=== PATIENT | female | born 1995 | race Asian ===

== ENCOUNTER 2018-08-26 10:08 | Day surgery (SDC) | payer OTHER ==
[~2018-08-26 10:08] MED LIST: Dexamethasone 20 MG/5 ML VIAL ONE; Lidocaine 1% PF 5 ML VIAL ONE; Ondansetron HCl/PF 4 MG/2 ML Vial ONE; PROPOFOL 200 MG/20 ML VIAL ONE; Succinylcholine Chloride 20 MG/ML 10 ml SYRINGE FS ONE
[2018-08-26] MEDS ORDERED: Scopolamine 1.5 mg/72 hour Patch ONE (10:52)
[2018-08-26] MEDS ORDERED: Ketorolac Tromethamine 30 MG/ML VIAL ONE (10:52)
--- NOTE | 2018-08-26 11:04 | HP ---
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 Histor y and exam suggestive of appendicitis. CAT scan revealing a dilated appendix without inflammatory ch anges. Appendix was retrocecal. Patient's white count 7 and hemoglobin 13. Basic metabolic profile is unremarkable. Urinalysis unremarkable. ALLERGIES: None. SOCIAL HISTORY: Tobacco none. Alcohol socially. MEDICATIONS: None. PAST MEDICAL HISTORY: Tonsillectomy. PHYSICAL EXAMINATION: VITAL SIGNS: 19 BMI, 130/82, 99.1 degrees, 70 heart rate, 18 respiratory rate. HEENT: Unremarkable. LUNGS: Clear to auscultation. CARDIAC: Regular rate and rhythm without murmur or gallop. ABDOMEN: Soft. Mild tenderness in right lower quadrant with guarding to deep palpation. EXTREMITIES: Unremarkable. ASSESSMENT AND PLAN: History and exam suggestive of appendicitis. CAT scan reveals dilated appendix without inflammatory changes. Recommend laparoscopic video appendectomy. Risk and benefits discuss ed. Questions answered.
[2018-08-26] MEDS ORDERED: Piperacillin/Tazobactam 3.375 GM in Sodium Chloride 0.9% 100 ML IVPB SCH (11:15)
[2018-08-26] MEDS ORDERED: Bupivacaine/Epinephrine 0.25% 30 ML VIAL ONE (12:12)
[2018-08-26] MEDS ORDERED: Fentanyl 100 MCG/2 ML VIAL ONE (12:40)
[2018-08-26] MEDS ORDERED: Promethazine HCl 25 MG/ML VIAL IM PRN (13:14)
[2018-08-26] MEDS ORDERED: Promethazine HCl 25 MG/ML VIAL SLOW IVP PRN (13:14)
[2018-08-26] MEDS ORDERED: Meperidine HCl/PF 25 MG/ML VIAL SLOW IVP PRN (13:14)
[2018-08-26] MEDS ORDERED: Ondansetron HCl/PF 4 MG/2 ML Vial IVP PRN (13:14)
[2018-08-26] MEDS ORDERED: SUGAMMADEX SODIUM 200 MG/2 ML VIAL ONE (13:43)
--- NOTE | 2018-08-26 14:09 | OP ---
DATE OF PROCEDURE: 08/26/2018 PREOPERATIVE DIAGNOSIS: Acute appendicitis. POSTOPERATIVE DIAGNOSIS: Acute appendicitis. PROCEDURE: Laparoscopic video appendectomy. SURGEON: Dr. Tr Cifuentes ANESTHESIA: General. Local 0.5% Marcaine with epinephrine 30 mL used. PROCEDURE: The patient was taken to the operating room where under general anesthesia, Florez cathete r placed at the beginning of the procedure and removed at the end. Abdomen clipped of hair, prepared with ChloraPrep, draped in routine fashion. Local anesthetic 0.5% Marcaine with epinephrine infiltr ated into skin and subcutaneous tissue about each port site. A infraumbilical incision made and pneu moperitoneum to 15 mmHg obtained with the Veress needle, replacing it with a 5 port, video laparoscop e inserted. Right subcostal incision made and a [address] Suprapubic incision made and a 12 por t placed. Appendix identified. Mesoappendix taken down with the LigaSure to the stump of the append ix divided with Endo-MELVIN blue load stapler. Appendix removed and submitted to Pathology. Stapled ce renny stump hemostasis gained with clips. Good hemostasis noted. Irrigant and pneumoperitoneum evacua josie. All instruments removed and suprapubic fascia approximated with 0 Vicryl and all skin incisions approximated with interrupted subdermal 4-0 Monocryl and DermaGlue applied. The patient tolerated t he procedure well without complications.
[2018-08-26] MEDS ORDERED: HYDROcodone/Acetaminophen 5/325 mg Tablet ONE (14:57)
== END 2018-08-26 15:45 | disposition home or self-care (01) ==
LOC: SDC 10:08
PROVIDERS: ATTEND Specialist
PROC: 0DTJ4ZZ Resection of Appendix, Percutaneous Endoscopic Approach (ICD-10-PCS; principal; 2018-08-26)
DX: K35.80 Unspecified acute appendicitis (principal)
CPT/HCPCS: 88304; J0131; J1885; J2543; J3010; J7050